=== PATIENT | male | born 1930 | race Caucasian/White ===

== ENCOUNTER 2016-11-26 07:04 | Emergency (ER) | payer MEDICARE, BC, MEDICAID ==
[~2016-11-26] VITALS: Ht 180.3 cm; Wt 86.2 kg
[2016-11-26] MEDS ORDERED: ARICEPT10 MG PO (07:47)
[2016-11-26] MEDS ORDERED: NORVASC5 MG PO (07:47)
[2016-11-26] MEDS ORDERED: TYLENOL325 MG PO (07:47)
[2016-11-26] MEDS ORDERED: ARTIFICIAL TEA1 EAC1 EYEBOTH (07:58)
[2016-11-26] MEDS ORDERED: ASPIRIN81 MG PO (07:58)
[2016-11-26] MEDS ORDERED: CELEXA10 MG PO (13:59)
[2016-11-26] MEDS ORDERED: CALTRATE 600 WI1 TAB PO (13:59)
[2016-11-26] MEDS ORDERED: FLEET ENEMA133 ML RECTAL (14:00)
[2016-11-26] MEDS ORDERED: FLONASE16 GM NASBOTH (14:01)
[2016-11-26] MEDS ORDERED: INCRUSE ELLI62.5 MCG INH (14:02)
[2016-11-26] MEDS ORDERED: LOPERAMIDE2 M1 PO (14:08)
[2016-11-26] MEDS ORDERED: LORADAMED10 MG PO (14:10)
[2016-11-26] MEDS ORDERED: CERTAVITE SR-AN1 TAB PO (14:17)
[2016-11-26] MEDS ORDERED: PRILOSEC20 MG PO ×2 (14:18)
[2016-11-26] MEDS ORDERED: PRAVASTATIN SOD10 MG PO (14:19)
[2016-11-26] MEDS ORDERED: MILK OF MAGNESI30 ML PO (14:20)
[2016-11-26] MEDS ORDERED: PRINIVIL20 MG PO (14:20)
[2016-11-26] MEDS ORDERED: SODIUM CHLORIDE1 GM PO (14:21)
[2016-11-26] MEDS ORDERED: SYMBICORT 160-4.6 GM INH (14:21)
[2016-11-26] MEDS ORDERED: HYDROCHLOROTHIA25 MG PO (14:21)
== END 2016-11-26 09:51 | disposition short-term general hospital (02) ==
LOC: ER 07:04
DX: R07.89 Other chest pain (principal); E11.22 Type 2 diabetes mellitus with diabetic chronic kidney disease; I13.0 Hypertensive heart and chronic kidney disease with heart failure and stage 1 through stage 4 chronic kidney disease, or unspecified chronic kidney disease; N18.9 Chronic kidney disease, unspecified; I50.9 Heart failure, unspecified; N17.9 Acute kidney failure, unspecified; I25.2 Old myocardial infarction; I25.10 Atherosclerotic heart disease of native coronary artery without angina pectoris; F32.9 Major depressive disorder, single episode, unspecified; J44.9 Chronic obstructive pulmonary disease, unspecified; F17.210 Nicotine dependence, cigarettes, uncomplicated; Z86.73 Personal history of transient ischemic attack (TIA), and cerebral infarction without residual deficits; Z79.82 Long term (current) use of aspirin; Z79.899 Other long term (current) drug therapy

== ENCOUNTER 2016-12-17 20:05 | Emergency (ER) | payer MEDICARE, BC, OTHER, MEDICAID ==
[~2016-12-17] VITALS: Ht 177.8 cm; Wt 89.8 kg
[~2016-12-17 20:05] MED LIST: ARICEPT10 MG PO; ARTIFICIAL TEA1 EAC1 EYEBOTH; ASPIRIN81 MG PO; CALTRATE 600 WI1 TAB PO; CELEXA10 MG PO; CERTAVITE SR-AN1 TAB PO; FLEET ENEMA133 ML RECTAL; FLONASE16 GM NASBOTH; HYDROCHLOROTHIA25 MG PO; INCRUSE ELLI62.5 MCG INH; LOPERAMIDE2 M1 PO; LORADAMED10 MG PO; MILK OF MAGNESI30 ML PO; NORVASC5 MG PO; PRAVASTATIN SOD10 MG PO; PRILOSEC20 MG PO; PRINIVIL20 MG PO; SODIUM CHLORIDE1 GM PO; SYMBICORT 160-4.6 GM INH; TYLENOL325 MG PO
== END 2016-12-17 20:37 ==
LOC: ER 20:05
DX: R04.0 Epistaxis (principal); F32.9 Major depressive disorder, single episode, unspecified; E11.9 Type 2 diabetes mellitus without complications; Z86.73 Personal history of transient ischemic attack (TIA), and cerebral infarction without residual deficits; J44.9 Chronic obstructive pulmonary disease, unspecified; Z79.82 Long term (current) use of aspirin; Z79.899 Other long term (current) drug therapy